=== PATIENT | male | born 1965 | race Caucasian/White ===

== ENCOUNTER 2020-07-30 21:49 | Inpatient (IN) | payer SELFPAY ==
[~2020-07-30 21:49] MED LIST: Iopamidol-370 76% 500 ML 1 ML ONE
[2020-07-30 22:49] LABS: INR-International Normal Ratio 1.2; PTT 25.4 sec (22.9-36.1); Prothrombin Time 15.3 sec (12.0-14.7)
[2020-07-30] MEDS ORDERED: Ondansetron PF 4 MG/2 ML Vial IVP PRN (23:53)
[2020-07-30] MEDS ORDERED: Albuterol Sulfate 2.5 mg/3 ml Neb NEB PRN (23:56)
[2020-07-31] MEDS ORDERED: Dextrose 50% Abboject 50 ML SYRINGE SLOW IVP PRN (00:12)
[2020-07-31] MEDS ORDERED: Dextrose 5% in Water 1,000 ML IV PRN (00:12)
[2020-07-31] MEDS ORDERED: Colchicine 0.6 MG TAB PO SCH (00:45)
[2020-07-31 00:50] VITALS: BMI 31.8
[2020-07-31] MEDS ORDERED: VANCOMYCIN 2 GRAM/400 ML BAG 2 GM in Premix Bag 1 BAG IVPB SCH (01:30)
[2020-07-31 01:59] LABS: Lactic Acid 1.5 mmol/L (0.5-2.2)
[2020-07-31 02:35] LABS: Bacteria/HPF None Seen HPF (None Seen); Bilirubin Negative (Negative); Blood, Urine 3+ (Negative); Clarity Clear (Clear); Glucose, Urine (Dipstick) Normal (Negative); Ketone, Urine Negative (Negative); Leukocyte 25 Leu/uL (Negative); Nitrite Negative (Negative); Protein, Urine (Dipstick) 10 mg/dL (Neg-Trace); RBC/HPF Greater than 50 HPF (0-3); Squamous Epithelial 0-3 HPF (0-3)
[2020-07-31 02:39] LABS: Specific Gravity, Urine 1.049 (1.002-1.036)
[2020-07-31 02:40] LABS: Urine Culture Reflex Yes Yes
[2020-07-31] MEDS: Sodium Chloride 0.9% 1,000 ML IV SCH ×2 (04:28→13:45)
[2020-07-31] MEDS: Acetaminophen 325 MG TAB PO PRN ×2 (04:51→20:17)
[2020-07-31 04:59] LABS: Hemoglobin A1c 5.6 % (4.0-6.0)
[2020-07-31 05:08] LABS: Band 8 % (5-11); Hemoglobin 13.2 g/dL (14.0-18.0); Hypochromia SLIGHT = 6-15 cells (100X) (0-5/hpf); MDiff Complete? YES; Mean Corpuscular HGB CONC 30.9 g/dL (32.0-36.0); Mean Corpuscular Hemoglobin 29.6 pg (27.0-31.0); Mean Corpuscular Volume 95.7 fL (78.0-98.0); Mean Platelet Volume 6.4 fL (7.4-10.4); Monocytes 7 % (0-10); Neutrophil 84 % (42-75); Platelet Count 405 thou/uL (130-400); Platelet Morphology Comment Appears Increased; RBC Distribution Width 11.9 % (11.5-14.5); Reactive Lymphocytes 1 % (0-10); Red Blood Cell (RBC) Count 4.46 mill/uL (4.70-6.10); White Blood Cell (WBC) Count 24.8 thou/uL (4.8-10.8)
[2020-07-31 05:11] LABS: Anion Gap 12 mmol/L (10-20); BUN (Urea Nitrogen) 8 mg/dL (8.4-25.7); Calc. Creatinine Clearance 149 mL/min (70-130); Calcium 7.6 mg/dL (7.8-10.44); Carbon Dioxide 21 mmol/L (22-29); Chloride 104 mmol/L (98-107); Glucose 175 mg/dL (70-105); Potassium 4.4 mmol/L (3.5-5.1); Sodium 133 mmol/L (136-145)
[2020-07-31] MEDS: Cefepime 1 GM in Sodium Chloride 0.9% 100 ML IVPB SCH ×2 (06:07→17:53)
[2020-07-31] MEDS: methylPREDNISolone Sod Succ 40 MG VIAL IVP SCH ×3 (06:07→22:48)
[2020-07-31] MEDS: Famotidine 20 MG TAB PO SCH ×2 (09:54→20:18)
[2020-07-31] MEDS: Colchicine 0.6 MG TAB PO SCH ×2 (09:54→20:18)
[2020-07-31] MEDS: Vancomycin 1.5 GRAM/300 ML BAG 1.5 GM in Premix Bag 1 BAG IVPB SCH (13:44)
[2020-07-31] MEDS: HumaLOG 300 UNITS/3 ML VIAL SC PRN ×2 (17:54→20:42)
[2020-07-31] MEDS: Enoxaparin Sodium 40 MG/0.4 ML SYRINGE SC SCH (20:18)
[2020-08-01] MEDS: Vancomycin 1.5 GRAM/300 ML BAG 1.5 GM in Premix Bag 1 BAG IVPB SCH (00:26)
[2020-08-01 05:52] LABS: Hemoglobin 13.9 g/dL (14.0-18.0); Lymphocytes 1 % (21-51); MDiff Complete? YES; Mean Corpuscular HGB CONC 31.5 g/dL (32.0-36.0); Mean Corpuscular Hemoglobin 30.6 pg (27.0-31.0); Mean Corpuscular Volume 97.3 fL (78.0-98.0); Mean Platelet Volume 6.9 fL (7.4-10.4); Monocytes 5 % (0-10); Neutrophil 94 % (42-75); Platelet Count 370 thou/uL (130-400); Platelet Morphology Comment Appears Adequate; RBC Distribution Width 12.1 % (11.5-14.5); Red Blood Cell (RBC) Count 4.54 mill/uL (4.70-6.10); White Blood Cell (WBC) Count 28.5 thou/uL (4.8-10.8)
[2020-08-01 06:10] LABS: Anion Gap 19 mmol/L (10-20); BUN (Urea Nitrogen) 16 mg/dL (8.4-25.7); Calc. Creatinine Clearance 151 mL/min (70-130); Calcium 7.9 mg/dL (7.8-10.44); Carbon Dioxide 13 mmol/L (22-29); Chloride 110 mmol/L (98-107); Glucose 154 mg/dL (70-105); Magnesium 2.5 mg/dL (1.6-2.6); Potassium 5.8 mmol/L (3.5-5.1); Sodium 136 mmol/L (136-145)
[2020-08-01] MEDS: Sodium Chloride 0.9% 1,000 ML IV SCH (07:50)
[2020-08-01] MEDS: Cefepime 1 GM in Sodium Chloride 0.9% 100 ML IVPB SCH ×2 (07:51→18:12)
[2020-08-01] MEDS: methylPREDNISolone Sod Succ 40 MG VIAL IVP SCH ×3 (07:51→21:24)
[2020-08-01] MEDS: HumaLOG 300 UNITS/3 ML VIAL SC PRN ×3 (08:17→18:12)
[2020-08-01] MEDS: Colchicine 0.6 MG TAB PO SCH ×2 (08:22→20:47)
[2020-08-01] MEDS: Famotidine 20 MG TAB PO SCH ×2 (08:22→20:46)
[2020-08-01] MEDS: Acetaminophen 325 MG TAB PO PRN (08:26)
[2020-08-01 12:33] LABS: Anion Gap 18 mmol/L (10-20); BUN (Urea Nitrogen) 17 mg/dL (8.4-25.7); Calc. Creatinine Clearance 141 mL/min (70-130); Calcium 8.5 mg/dL (7.8-10.44); Carbon Dioxide 16 mmol/L (22-29); Chloride 106 mmol/L (98-107); Glucose 208 mg/dL (70-105); Potassium 4.2 mmol/L (3.5-5.1); Sodium 136 mmol/L (136-145)
[2020-08-01] MEDS: HYDROcodone/Acetaminophen 5/325 mg Tablet PO PRN ×2 (12:41→18:12)
[2020-08-01] MEDS: Enoxaparin Sodium 40 MG/0.4 ML SYRINGE SC SCH (20:47)
[2020-08-01] MEDS: Guaifenesin DM 100-10/5 ML UDCUP PO PRN (20:47)
[2020-08-01] MEDS ORDERED: HumaLOG 300 UNITS/3 ML VIAL SC PRN (21:15)
[2020-08-02] MEDS: Guaifenesin DM 100-10/5 ML UDCUP PO PRN ×2 (00:27→05:08)
[2020-08-02] MEDS: methylPREDNISolone Sod Succ 40 MG VIAL IVP SCH ×3 (05:09→21:38)
[2020-08-02] MEDS: Cefepime 1 GM in Sodium Chloride 0.9% 100 ML IVPB SCH ×2 (05:09→17:28)
[2020-08-02] MEDS: HumaLOG 300 UNITS/3 ML VIAL SC PRN (05:44)
[2020-08-02 07:00] LABS: #Lymphocytes 0.6 thou/uL (1.20-3.40); #Monocytes 0.8 thou/uL (0.11-0.59); #Neutrophils 21.8 thou/uL (1.40-6.50); %Lymphocytes 2.4 % (21.0-51.0); %Monocytes 3.2 % (0.0-10.0); %Neutrophils 94.3 % (42.0-75.0); Hemoglobin 13.5 g/dL (14.0-18.0); Mean Corpuscular HGB CONC 32.8 g/dL (32.0-36.0); Mean Corpuscular Volume 94.5 fL (78.0-98.0); Mean Platelet Volume 6.5 fL (7.4-10.4); Platelet Count 461 thou/uL (130-400); RBC Distribution Width 12.1 % (11.5-14.5); Red Blood Cell (RBC) Count 4.36 mill/uL (4.70-6.10); White Blood Cell (WBC) Count 23.2 thou/uL (4.8-10.8)
[2020-08-02 07:26] LABS: Anion Gap 12 mmol/L (10-20); BUN (Urea Nitrogen) 15 mg/dL (8.4-25.7); Calc. Creatinine Clearance 157 mL/min (70-130); Carbon Dioxide 23 mmol/L (22-29); Chloride 107 mmol/L (98-107); Glucose 162 mg/dL (70-105); Magnesium 2.6 mg/dL (1.6-2.6); Sodium 138 mmol/L (136-145)
[2020-08-02] MEDS: Colchicine 0.6 MG TAB PO SCH ×2 (08:37→21:37)
[2020-08-02] MEDS: HYDROcodone/Acetaminophen 5/325 mg Tablet PO PRN ×3 (08:37→21:37)
[2020-08-02] MEDS: Famotidine 20 MG TAB PO SCH ×2 (08:38→21:37)
[2020-08-02] MEDS: Losartan 25 MG TAB PO SCH (10:18)
[2020-08-02] MEDS: Enoxaparin Sodium 40 MG/0.4 ML SYRINGE SC SCH (21:37)
[2020-08-02] MEDS: guaiFENesin/Codeine 200 mg/20 mg 10 ml Cup PO PRN (21:38)
[2020-08-03] MEDS: HYDROcodone/Acetaminophen 5/325 mg Tablet PO PRN (06:37)
[2020-08-03] MEDS: Cefepime 1 GM in Sodium Chloride 0.9% 100 ML IVPB SCH ×2 (06:38→17:00)
[2020-08-03] MEDS: methylPREDNISolone Sod Succ 40 MG VIAL IVP SCH ×2 (06:38→15:07)
[2020-08-03 08:14] VITALS: TEMP 97.7
[2020-08-03] MEDS: Famotidine 20 MG TAB PO SCH (08:16)
[2020-08-03] MEDS: Colchicine 0.6 MG TAB PO SCH (08:16)
[2020-08-03] MEDS: Losartan 25 MG TAB PO SCH (08:16)
[2020-08-03] MEDS: guaiFENesin/Codeine 200 mg/20 mg 10 ml Cup PO PRN ×2 (08:18→17:00)
[2020-08-03] MEDS ORDERED: Losartan 25 MG TAB PO SCH ×2 (08:45→09:00)
[2020-08-03] MEDS ORDERED: Colchicine 0.6 MG TAB PO SCH (09:00)
[2020-08-03 15:06] VITALS: BP 168/93
== END 2020-08-03 15:32 | disposition home or self-care (01) | DRG 871 ==
LOC: ERS 21:49 → CCU 22:47 → 2NO 08-01 15:24
PROVIDERS: ADMIT Internal Medicine; ATTEND Internal Medicine
PROC: 3E033XZ Introduction of Vasopressor into Peripheral Vein, Percutaneous Approach (ICD-10-PCS; principal; 2020-07-30)
DX: A41.9 Sepsis, unspecified organism (principal); R65.21 Severe sepsis with septic shock; J18.9 Pneumonia, unspecified organism; I30.9 Acute pericarditis, unspecified; J90 Pleural effusion, not elsewhere classified; J44.1 Chronic obstructive pulmonary disease with (acute) exacerbation; E87.2 Acidosis; J98.11 Atelectasis; N39.0 Urinary tract infection, site not specified; R73.9 Hyperglycemia, unspecified; T38.0X5A Adverse effect of glucocorticoids and synthetic analogues, initial encounter; F17.210 Nicotine dependence, cigarettes, uncomplicated; M54.5 Low back pain; I10 Essential (primary) hypertension; E78.00 Pure hypercholesterolemia, unspecified; G89.29 Other chronic pain; Z91.14 Patient's other noncompliance with medication regimen
CPT/HCPCS: 36415; 36416; 71275; 80048; 80202; 81001; 83036; 83605; 83735; 85025; 85610; 85730; 87070; 87086; 87205; 93005; 93306; 94640; J0692; J1650; J1815; J2920; J3370; J3490; J7620; Q9967